=== PATIENT | male | born 1965 | race Caucasian/White ===

== ENCOUNTER 2018-06-20 13:06 | Outpatient (CLI) | payer BC, SELFPAY ==
[2018-06-20 15:23] LABS: FREE T4 0.88 ng/dL (0.76-1.46); TSH 2.73 uIU/mL (0.358-3.74)
== END 2018-06-20 13:26 ==
PROVIDERS: PCP Registered Nurse; Visit Provider Registered Nurse
DX: E03.9 Hypothyroidism, unspecified (principal)
CPT/HCPCS: 36415; 84439; 84443

== ENCOUNTER 2018-07-13 00:57 | Outpatient (CLI) | payer BC, SELFPAY ==
--- NOTE | 2018-07-13 09:35 | DI.US_ITS ---
SYMPTOM/DIAGNOSIS: INTERMITTENT RUQ DISCOMFORT, R10.11 ABDOMEN ULTRASOUND: The aorta and vena cava are normal. The liver is not enlarged but appears echogenic. An anechoic region in the right hepatic lobe likely represents a 9 by 6 by 6 mm. cyst. The gallbladder is intact. There are no gallstones or evidence of ductal dilatation. There is only limited visualization of the pancreas. No gross abnormality is seen. The spleen measures 10.7 cm. and is acoustically homogeneous. The right kidney measures 10.8 and the left kidney measures 11.5 cm. No renal abnormality is demonstrated. There is no evidence of free fluid. SUMMARY: Question fatty liver. A small anechoic region measuring 9 by 6 by 8 mm. is noted in the right hepatic lobe and likely represents a small cyst.
== END 2018-07-13 01:17 ==
PROVIDERS: PCP Registered Nurse; Visit Provider Registered Nurse
DX: R10.11 Right upper quadrant pain (principal); K76.0 Fatty (change of) liver, not elsewhere classified; K76.89 Other specified diseases of liver
CPT/HCPCS: 76700

== ENCOUNTER 2019-01-13 01:55 | Outpatient (CLI) | payer BC, SELFPAY ==
[2019-01-13 13:00] LABS: HCT 46.6 % (40.0-50.0); HGB 16.6 g/dL (13.5-17.5); Mean Corp. HGB Concentration 35.6 g/dL (32.0-36.0); Mean Corpuscular Hemoglobin 32.4 pg (27.0-33.0); Mean Corpuscular Volume 90.8 fL (80-95); Mean Platelet Volume 9.7 fL (8.0-11.0); Platelet Count 248 x1000/uL (130-400); RBC 5.13 m/cumm (4.50-6.00); RBC Distribution Width 12.6 % (11.8-14.1); White Blood Cell Count 6.39 k/cumm (4.4-10.8)
[2019-01-13 13:10] LABS: Hemoglobin A1C 5.3 % (4.5-6.2)
[2019-01-13 13:17] LABS: Calculated LDL 108 mg/dL; Cholesterol 185 mg/dL (50-200); HDL Cholesterol 34 mg/dL (40-60); Triglyceride 215 mg/dL (30-150)
[2019-01-16 11:16] LABS: PSA, Screening 0.9 ng/ml (0-3.5)
== END 2019-01-13 02:15 ==
PROVIDERS: PCP Nurse Practitioner; Visit Provider Nurse Practitioner
DX: R53.83 Other fatigue (principal); E03.9 Hypothyroidism, unspecified; Z13.1 Encounter for screening for diabetes mellitus; Z13.6 Encounter for screening for cardiovascular disorders; Z12.5 Encounter for screening for malignant neoplasm of prostate
CPT/HCPCS: 36415; 80061; 84153; 85027; 83036; 84443

== ENCOUNTER 2019-10-26 13:10 | Outpatient (CLI) | payer BC, SELFPAY ==
--- NOTE | 2019-10-26 13:45 | DI.US_ITS ---
EXAM: US LOWER EXTREMITY VENOUS LT CLINICAL HISTORY: r/o DVT, PAIN LT CALF M79.662. TECHNIQUE: Ultrasound performed using standard protocol. COMPARISON: US US ABDOMEN from 07/13/2018 FINDINGS: Duplex venous ultrasound was performed according to the usual protocol. The deep veins are freely com pressible throughout and there is normal flow augmentation with manual calf compression. 2D and Doppl er evaluation are unremarkable. IMPRESSION: No evidence of deep venous thrombosis of the left lower extremity DATA REPOSITORY:
== END 2019-10-26 13:30 ==
PROVIDERS: PCP Nurse Practitioner; Visit Provider Nurse Practitioner
DX: M79.662 Pain in left lower leg (principal)
CPT/HCPCS: 93971

== ENCOUNTER 2020-01-31 02:23 | Outpatient (CLI) | payer BC, SELFPAY ==
[2020-01-31 13:15] LABS: TSH 2.57 uIU/mL (0.36-3.74)
== END 2020-01-31 02:43 ==
PROVIDERS: PCP Nurse Practitioner; Visit Provider Nurse Practitioner
DX: E03.9 Hypothyroidism, unspecified (principal)
CPT/HCPCS: 36415; 84443

== ENCOUNTER 2020-10-11 04:22 | Outpatient (CLI) | payer BC, SELFPAY ==
[2020-10-11 10:49] LABS: Source Nasal/Nares
[2020-10-11 15:04] LABS: COVID-19 PCR Negative (Negative)
== END 2020-10-11 04:23 | disposition home or self-care (01) ==
LOC: LBO 04:22
PROVIDERS: PCP Nurse Practitioner; Visit Provider Surgery
DX: Z20.822 Contact with and (suspected) exposure to COVID-19 (principal); Z01.818 Encounter for other preprocedural examination
CPT/HCPCS: 87635

== ENCOUNTER 2020-10-14 08:10 | Day surgery (SDC) | payer BC, SELFPAY ==
--- NOTE | 2020-10-14 06:42 | W.COLOREPORT ---
Date of service: 10/14/20 Time of Service: 09:53 Colonoscopy Report Date of procedure: 10/14/20 Pre-op diagnosis general: Screening colonoscopy for hx of colon polyps Post-op diagnosis procedure note: same (and mild diverticulosis) Procedure: Colonoscopy with polypectomy Surgeon: Simona Oliveira Anesthesia Type: General:No Airway (ASA 2/Bharath Watts, YOLANDA) Estimated blood loss (mL): 3 Pathology: other (Rectal polyp) Complications: None Disposition: same day Indications: The patient is here for Colonoscopy pre-op. His last screening was in 2016 and was remarkable for tubular adenomatous polyp. He has no family history of colon cancer. He has not had any bowel habit changes. -Discussed colonoscopy bowel prep as well as the procedure. Discussed possible complications of the procedure to include bleeding, pain, perforation, missed small lesion/polyp, sore throat, aspiration and adverse reaction to the medications. Questions were answered to patient?s satisfaction. No guarantees were implied or given. Prep: Miralax/Dulcolax Findings: One small (<10 mm) sessile polyp in the rectum Mild diverticulosis Procedure Description: After informed consent was obtained the patient was taken to the procedure room and placed in a left decubitous position. Monitors were applied and a time out was done. The patients name, date of , procedure, allergies to medications and metal in their body was reviewed. The patient was then sedated. Once sedated and comfortable a rectal exam was done. External exam was normal. Internal exam revealed a normal sphincter tone and no palpable masses. The prostate felt smooth and not enlarged. The scope was then introduced and retro-flexed. No internal hemorrhoids, polyps or masses were identified on retro-flexion. The scope was then advanced to the cecum without difficulty. The ileocecal valve and appendiceal orifice were identified. The prep was marginal, there was a lot of liquid stool. 500 cc of water was used to clean as much as possible. The scope was then slowly retracted over 13 minutes back into the rectum. Polyps were removed with cold forceps in the rectum. There was mild diverticulosis noted in the sigmoid colon. The scope was removed and the patient was woken up and taken back to Same day surgery in stable condition. The patient tolerated the procedure well and there were no immediate complications. Follow up: The patient should follow up in 5 years unless they develop changes in bowel habits or other new gastrointestinal complaints.
--- NOTE | 2020-10-14 06:44 | W.PM.DSUDISC ---
Discharge Plan Disposition Patient Disposition: HOME Condition: Good Discharge Details Reason For Visit: Colonoscopy Attending Provider: Simona Oliveira Primary Care Provider: Maryann Leroy Home Meds and New Rx's Prescriptions: Continued multivitamin [One-A-Day Essential] Tablet 1 tab PO DAILY RF: 0 Adult Probiotic 3 billion cell capsule 3,000 mmu cells PO DAILY RF: 0 cholecalciferol (vitamin D3) 1,000 unit capsule 1,000 unit PO DAILY RF: 0 ascorbic acid (vitamin C) 500 mg capsule 500 mg PO DAILY RF: 0 levothyroxine 50 mcg capsule 50 mcg PO DAILY Qty: 90 RF: 3 cholecalciferol (vitamin D3) [Vitamin D3] 25 mcg (1,000 unit) Tablet 1,000 unit PO DAILY RF: 0 Discontinued polyethylene glycol 3350 17 gram/dose powder 238 g PO ONCE Qty: 238 RF: 0 bisacodyl [Dulcolax (bisacodyl)] 5 mg tablet,delayed release (DR/EC) 5 mg PO ONCE Qty: 4 RF: 0 Discharge Instructions Additional Instructions: Findings: one small flat polyp mild diverticulosis Follow up: 5 years Please call if you develop: fevers >101.5 Nausea or Vomiting Abdominal pain that is not transient Rectal bleeding that is more then a tbsp A hard abdomen and inability to pass gas DAY SURGERY UNIT POST ENDOSCOPY INSTRUCTIONS Instructions for everyone who is given Anesthesia: For your safety, please do the following for the next 24 Hours: a. Do not drive or operate dangerous equipment b. Do not drink alcohol beverages or use any recreational drugs for the first 24 hours or while taking pain medications. The medications in your body may have a reaction that can be dangerous. c. Do not make any important decisions or sign any important papers 1. Generally there are no restrictions on your activity after a day or so has gone by, but you may feel a bit fatigued for a few days. 2. After you arrive home you may have a light meal and return to a normal diet as you can tolerate it without feeling sick to your stomach. 3. After surgery, you may feel pain or discomfort. This should be only transient, but if it persists please contact your doctor. 4. If there are any questions regarding the findings of your procedure, please feel free to contact your doctor. 6. If you are unable to contact your doctor with a problem, contact the hospital at [phone]. 6. Continue all your regular medications unless directed otherwise. I understand the above instructions and have no questions. Signature of Patient or Responsible Adult Escort Date/Time Name of Responsible Adult Escort Signature of Nurse Date/Time Activity:: Activity as Tolerated Diet:: High Fiber Discharge Orders Discharge Orders: Discharge Order (Routine); Ordered 10/14/20 Ordered By: Simona Oliveira
[2020-10-14 08:11] VITALS: BP 136/79; PULSE 77; RESP 18; TEMP 36.5; O2SAT 97
[2020-10-14] MEDS: Lactated Ringers 1,000 ML 80 ML IV (08:35)
--- NOTE | 2020-10-14 08:36 | W.ANESPRE ---
General Info Date of Service Date Performed: 10/14/20 Height: 5 ft 6 in Weight: 105.914 kg Body Mass Index (BMI): 37.7 Surgical Procedure: Operation Date: 10/14/20 09:05 Proposed Procedures Side Surgeon p Colonoscopy Simona Oliveira MD Meds Allergies and Home Medications Allergies Allergy/AdvReac Type Severity Reaction Status Date / Time cyclobenzaprine AdvReac Intermediate Nasty Verified 10/14/20 08:25 [From Flexeril] dispostion codeine AdvReac Nausea Verified 10/14/20 08:25 Home Medication Medication Instructions Recorded cholecalciferol (vitamin D3) 25 1,000 unit PO DAILY 03/03/19 mcg (1,000 unit) capsule lactobacillus combination no.8 3 3,000 mmu cells PO DAILY 03/03/19 billion cell capsule multivitamin 1 tab PO DAILY 03/03/19 levothyroxine 50 mcg capsule 50 mcg PO DAILY #90 cap 08/08/19 ascorbic acid (vitamin C) 500 mg 500 mg PO DAILY 10/03/20 capsule bisacodyl 5 mg tablet,delayed 5 mg PO ONCE #4 tab 10/03/20 release polyethylene glycol 3350 17 238 g PO ONCE #238 g 10/03/20 gram/dose oral powder cholecalciferol (vitamin D3) 1,000 unit PO DAILY 10/10/20 [Vitamin D3] Current Visit Medications: Current Medications Generic Name Dose Route Start Last Admin Trade Name Freq PRN Reason Stop Dose Admin Hyoscyamine Sulfate 0.125 mg 10/14/20 06:44 Hyoscyamine 0.125 Mg Sl/Oral/Chew SL DIRECTED PRN Ringer's Solution 1,000 mls @ 80 mls/hr 10/14/20 06:00 10/14/20 08:35 IV 11/10/20 23:59 80 mls/hr INFUSION DAYANA Administration IV Miscellaneous Supplies 1 each 10/14/20 06:00 Iv Access IV 11/10/20 23:59 DIRECTED DAYANA Ondansetron HCl 4 mg 10/14/20 06:44 Ondansetron 4 Mg/2 Ml Vial IVP Q4H PRN PRN Nausea / Vomiting Sodium Chloride 0 ml 10/14/20 06:00 Normal Saline Flush 10 Ml Syr IV 11/10/20 23:59 PRN PRN Sodium Chloride 0 ml 10/14/20 06:00 Normal Saline 10 Ml Vial IJ 11/10/20 23:59 DIRECTED PRN Sterile Water 0 ml 10/14/20 06:00 Water,Injection,Sterile 10 Ml Vial IJ 11/10/20 23:59 DIRECTED PRN PFSH Active Problems Active Problems: Problem Status Onset Code Screening for colon cancer Z12.11 Annual physical exam Z00.00 Screening for prostate cancer Z12.5 Snoring R06.83 Fatigue R53.83 Hypothyroid E03.9 Tobacco Smoking/Tobacco Use Status: Never Passive smoking exposure: Yes Alcohol Alcohol Intake: current Alcohol intake frequency: a few times a month Substance Use Substance use: Occasionally Substance use type: marijuana Details: Marijuana use 3-4 days ago Vital Signs and Lab Results Vital Signs Most Recent Vital Signs in EMR: Most Recent Vital Signs Temp Pulse Resp BP Pulse Ox 36.5 C 77 18 136/79 97 10/14/20 08:11 10/14/20 08:11 10/14/20 08:11 10/14/20 08:11 10/14/20 08:11 Lab Results Blood Type / Crossmatch: No Data to Display Complete Blood Count: No Data to Display Complete Metabolic Panel: No Data to Display Liver Function Panel: No Data to Display Coagulation Panel: No Data to Display Cardiac Panel: No Data to Display Arterial Blood Gas: No Data to Display Venous Blood Gas: No Data to Display Pancreas Panel: No Data to Display Thyroid Panel: No Data to Display Infectious Disease: Coronavirus (COVID-19)(PCR) Negative (Negative) 10/11/20 08:40 10/11/20 Coronavirus 2019 Source Nasal/Nares 10/11/20 08:40 10/11/20 Blood Cultures: No Data to Display Toxicology Panel: No Data to Display Anesthesia Assessment and Plan Anesthesia History Personal History: No History of Anesthesia Complications Family History: No Family History of Anesthesia Complications Exercise Tolerance Exercise Tolerance: Metabolic Equivalents>4 Cardiac & Pulmonary Exam Cardiac Exam: Normal S1/S2 Heart Sounds Pulmonary Exam: Clear Bilateral Breath Sounds Airway Exam Known Difficult Airway: No Mallampati Class: 3 Mouth Opening: Normal (> 3cm) Thyromental Distance: Less than 3 cm Neck Range of Motion: Limited ROM Neck Circumference: Thick Teeth Condition: Normal Dentition ASA Classification ASA Score: ASA 2 Emergency Case?: No NPO Status NPO Status: NPO Clears >2 hours, Solids >8 hours Anesthesia Plan Resuscitation Status: Full Code Anesthesia Technique: General Anesthesia Airway Planned: Natural Airway Monitors Used: Standard Monitors Preoperative Comments:: 55 yo male for colo. last colo was 2015 with polyps.
[2020-10-14 08:47] VITALS: BMI 37.7
--- NOTE | 2020-10-14 09:12 | W.ANESPOSTOP ---
Postoperative Evaluation Date, Time and Location Date Performed: 10/14/20 Time Performed: 09:12 Patient Location: Day Surgery Unit Vital Signs Most Recent Imported Vital Signs: Most Recent Vital Signs Temp Pulse Resp BP Pulse Ox 36.5 C 77 18 136/79 97 10/14/20 08:11 10/14/20 08:11 10/14/20 08:11 10/14/20 08:11 10/14/20 08:11 Most Recent Manually Entered Vital Signs: Adult Blood Pressure: 127/78 Heart Rate: 68 Respirations: 12 Oxygen Saturation (%): 98 Temperature (C): 36.4 C Pain Score (0-10 Scale): 0 Pain Score Most Recent Pain Score: Most Recent Pain Score Pain Level 0 10/14/20 08:11 Assessment Mental Status: Awake (Alert & Oriented to Patient Baseline) Airway and Respiratory Function: Patent airway with normal (patient baseline) respiratory exam Cardiovascular Function: Hemodynamically Stable Hydration Status: Adequately Hydrated Nausea & Vomiting: No Nausea or Vomiting Pain: Pt. Denies Any Pain Peripheral Nerve Block: Patient did not receive a nerve block
[2020-10-14 09:13] VITALS: BP 127/78; PULSE 68; RESP 12; TEMPC 36.4; O2SAT 98
--- NOTE | 2020-10-14 09:45 | BOWEL_PTH ---
PATIENT: Braxton Perales LOC: [facility] U#:[id number] AGE/SX: 55/M ROOM: RE10/14/[address]: Simona Oliveira MD : 1965 BED: DIS: 10/14/2020 SPEC #: [id number] RECD: 10/14/20 12:46 STATUS: CLARE REQ #: [id number] CARLEEN: 10/14/20 09:[address]: Simona Oliveira DEPT: Surgical Specimen RECD BY: Mirian Allen ENTERED: 10/14/20 12:47 SP TYPE: Bowel OTHR DR: Maryann Leroy, PhD COILED TUBING OPERATOR Tissues: 1 - BIOPSY BOWEL Procedures: GROSS AND MICRO LEVEL 4 Comments: [id number]
[2020-10-14 09:58] VITALS: BP 132/94; PULSE 60; RESP 16; TEMP 36.1; O2SAT 100
--- NOTE | 2020-10-14 10:01 | W.ANESPOSTOP ---
Postoperative Evaluation Date, Time and Location Date Performed: 10/14/20 Time Performed: 10:01 Patient Location: Day Surgery Unit Vital Signs Most Recent Imported Vital Signs: Most Recent Vital Signs Temp Pulse Resp BP Pulse Ox 36.5 C 77 18 136/79 97 10/14/20 08:11 10/14/20 08:11 10/14/20 08:11 10/14/20 08:11 10/14/20 08:11 Most Recent Vital Signs Temp Pulse Resp BP Pulse Ox 36.5 C 77 18 136/79 97 10/14/20 08:11 10/14/20 08:11 10/14/20 08:11 10/14/20 08:11 10/14/20 08:11 Most Recent Manually Entered Vital Signs: Adult Blood Pressure: 132/94 Heart Rate: 62 Respirations: 12 Oxygen Saturation (%): 98 Temperature (C): 36.1 C Pain Score (0-10 Scale): 0 Pain Score Most Recent Pain Score: Most Recent Pain Score Pain Level 0 10/14/20 08:11 Assessment Mental Status: Awake (Alert & Oriented to Patient Baseline) Airway and Respiratory Function: Patent airway with normal (patient baseline) respiratory exam Cardiovascular Function: Hemodynamically Stable Hydration Status: Adequately Hydrated Nausea & Vomiting: No Nausea or Vomiting Pain: Pt. Denies Any Pain Peripheral Nerve Block: Patient did not receive a nerve block
[2020-10-14 10:02] VITALS: BP 132/94; PULSE 62; RESP 12; TEMPC 36.1; O2SAT 98
[2020-10-14 10:30] VITALS: BP 155/86; PULSE 59; RESP 16; TEMP 36.4; O2SAT 97
== END 2020-10-14 10:50 | disposition home or self-care (01) ==
PROVIDERS: PCP Nurse Practitioner; Visit Provider Surgery
PROC: 0DJD8ZZ Inspection of Lower Intestinal Tract, Via Natural or Artificial Opening Endoscopic (ICD-10-PCS; CPT 45378; principal; 2020-10-14 09:00)
DX: Z12.11 Encounter for screening for malignant neoplasm of colon (principal); K62.1 Rectal polyp; Z86.010 Personal history of colon polyps; K57.30 Diverticulosis of large intestine without perforation or abscess without bleeding
CPT/HCPCS: 45380; 88305; J2001

== ENCOUNTER → 2021-06-04 01:54 | Outpatient (CLI) | payer BC, SELFPAY ==
--- NOTE | 2021-06-04 06:30 | DI.MRI_ITS ---
Exam(s) MR LUMBAR SPINE WO EXAM: MR LUMBAR SPINE WO CLINICAL HISTORY: Injured lumbar spine,BACK PAIN,S39.92XA. TECHNIQUE: Multiplanar multisequence MRI of the Lumbar spine was performed. COMPARISON: CT ABD PELVIS WITH CONTRAST from 10/16/2016 FINDINGS: Five lumbar vertebrae are presumed Conus medullaris is at normal level. There is no evidence of conus mass nor subjacent clumping of in trathecal nerve roots to suggest arachnoiditis. The distal thecal sac is at L5-S1 level. There is n o evidence of Tarlov intra sacral cyst within the sacral canal. Bones:There are no fractures nor ominous osseous lesions in the lumbar vertebral bodies and visualize d sacrum. With respect to the individual levels... T12-L1: Unremarkable L1-2: There is mild disc space narrowing. There is no evidence of significant disc herniation or can al stenosis. No significant foraminal stenosis at this level. No facet arthropathy. L2-3: Moderate disc height loss. Relatively symmetrical annular bulging. Central canal dimensions a re lower normal. No foraminal stenosis. No significant facet arthropathy. L3-4: Relatively preserved disc height. There is a small central subligamentous disc protrusion at t his level extending posteriorly 1 millimeter, this subligamentous finding indenting the anterior aspe ct thecal sac at the level of the disc space. However, central canal dimensions are lower normal. T here is no foraminal stenosis. Minimal degenerative changes are noted in the facet joints. L4-5: Normal disc height and signal. No disc herniation. No canal stenosis. No foraminal stenosis. Mild facet degenerative changes L5-S1: Normal disc height and signal. No disc herniation. No canal stenosis. No foraminal stenosis . Mild degenerative facet joint changes. Soft tissues: paraspinal soft tissues appear unremarkable. IMPRESSION: 1. There is a small central subligamentous disc protrusion at L3-4 level. This slightly indents the anterior aspect of the thecal sac at this level. However, central canal dimensions are lower normal and there is no significant foraminal stenosis at this level nor elsewhere in the lumbosacral spinal column. 2. At L2-3 level there is symmetrical annular bulging which also flattens the anterior aspect of the thecal sac. Central canal dimensions are lower normal. No foraminal stenosis. 3. Both the L4-5 and L5-S1 discs appear unremarkable There is minimal facet joint degenerative change DATA REPOSITORY:
== END ==
PROVIDERS: PCP Nurse Practitioner; Visit Provider Nurse Practitioner Family
DX: M51.26 Other intervertebral disc displacement, lumbar region
CPT/HCPCS: 72148

== ENCOUNTER 2021-07-29 02:11 | Outpatient (CLI) | payer BC, SELFPAY ==
[2021-07-29 13:00] LABS: TSH 2.05 uIU/mL (0.36-3.74)
== END 2021-07-29 02:12 | disposition home or self-care (01) ==
LOC: LOS 02:11
PROVIDERS: PCP Nurse Practitioner; Visit Provider Nurse Practitioner
DX: E03.9 Hypothyroidism, unspecified (principal)
CPT/HCPCS: 36415; 84443

== ENCOUNTER 2022-02-27 01:20 | Outpatient (CLI) | payer BC, SELFPAY ==
[2022-02-27 13:00] LABS: HGB 17.5 g/dL (13.5-17.5); MCH 31.9 pg (27.0-33.0); MCV 91 fL (80-95); MPV 9.8 fL (8.0-11.0); Platelet Count 267 10^3/uL (130-400); RBC 5.48 10^6/uL (4.36-5.78); RDW-SD 40.2 fL; WBC 7.85 10^3/uL (4.4-10.8)
[2022-02-27 13:09] LABS: Hemoglobin A1C 5.2 % (<5.7)
[2022-02-27 13:14] LABS: ALT 99 U/L (16-63); AST 40 U/L (15-37); Albumin 3.9 g/dL (3.4-5.0); Alkaline Phosphatase 75 U/L (46-116); Anion Gap 5.6 mmol/L (3-11); BUN 11 mg/dL (7-18); Bilirubin, Total 0.4 mg/dL (0.2-1.0); CO2 29.4 mmol/L (21.0-32.0); Calculated LDL 108 mg/dL (<100); Chloride 106 mmol/L (98-107); Cholesterol 178 mg/dL (<200); Estimated GFR 87.78 (mL/min/1.73m2); Glucose 108 mg/dL (74-106); HDL Cholesterol 36 mg/dL (40-60); Potassium 4.7 mmol/L (3.5-5.1); Sodium 141 mmol/L (136-145); Total Protein 7.6 g/dL (6.4-8.2); Triglyceride 173 mg/dL (<150)
== END 2022-02-27 01:21 | disposition home or self-care (01) ==
LOC: LOS 01:21
PROVIDERS: PCP Nurse Practitioner Family; Visit Provider Nurse Practitioner Family
DX: E03.9 Hypothyroidism, unspecified (principal); E66.9 Obesity, unspecified; G47.33 Obstructive sleep apnea (adult) (pediatric); Z00.00 Encounter for general adult medical examination without abnormal findings
CPT/HCPCS: 36415; 80053; 80061; 85027; 83036; 84443

== ENCOUNTER 2023-02-26 01:36 | Outpatient (CLI) | payer BC, SELFPAY ==
[2023-02-26 12:41] LABS: ALT 101 U/L (16-63); AST 44 U/L (15-37); Albumin 3.8 g/dL (3.4-5.0); Alkaline Phosphatase 64 U/L (46-116); Anion Gap 9.9 mmol/L (3-11); BUN 8 mg/dL (7-18); Bilirubin, Total 0.5 mg/dL (0.2-1.0); CO2 26.1 mmol/L (21.0-32.0); Calcium 8.6 mg/dL (8.5-10.1); Calculated LDL 108 mg/dL (<100); Chloride 107 mmol/L (98-107); Cholesterol 169 mg/dL (<200); Estimated GFR 87.24 (mL/min/1.73m2); Glucose 104 mg/dL (74-106); HDL Cholesterol 36 mg/dL (40-60); Potassium 4.3 mmol/L (3.5-5.1); Sodium 143 mmol/L (136-145); Total Protein 7.4 g/dL (6.4-8.2); Triglyceride 127 mg/dL (<150)
== END 2023-02-26 01:37 | disposition home or self-care (01) ==
LOC: LOS 01:37
PROVIDERS: PCP Nurse Practitioner Family; Visit Provider Nurse Practitioner Family
DX: E03.9 Hypothyroidism, unspecified (principal); E66.9 Obesity, unspecified; G47.33 Obstructive sleep apnea (adult) (pediatric); Z00.00 Encounter for general adult medical examination without abnormal findings
CPT/HCPCS: 36415; 80053; 80061; 84443

== ENCOUNTER 2023-07-15 20:41 | Emergency (ER) | payer BC, SELFPAY ==
[2023-07-15 20:47] VITALS: PULSE 94; RESP 16; TEMP 37; O2SAT 98
[2023-07-15 20:58] VITALS: BP 177/64
--- NOTE | 2023-07-15 21:00 | DI.CT_ITS ---
Exam(s) CT FACIAL W EXAM: CT FACIAL W CLINICAL HISTORY: concern for deep tissue infection face and scalp. TECHNIQUE: Imaging Protocol: Axial computed tomography images with coronal and sagittal reformatted images were created and reviewed CONTRAST MATERIAL: Intravenous: Omnipaque 350 Contrast volume:100 mL COMPARISON: No exams were available for comparison FINDINGS: CT Face: Facial Bones: No definite fracture is noted in facial bones. No destructive changes are seen to sugg est osteomyelitis. 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 Sinuses and Mastoids: There is mild mucosal thickening in the maxillary sinuses. Small mucous retent ion cysts are seen in the floor of the right maxillary sinus. There is mucosal thickening in several ethmoid air cells bilaterally. Mild mucosal thickening is seen in the frontal sinuses and sphenoid si nuses bilaterally. No air-fluid levels are seen in any of the visualized paranasal sinuses. No sinu s wall destruction is seen. Globes, extraocular muscles, optic nerves and retrobulbar fat: Normal. Upper aerodigestive tract: Normal. Mandible and bilateral temporomandibular joints: Normal. Soft tissues: There is mild soft tissue swelling and skin thickening along the forehead but no focal fluid collection is seen to suggest an abscess. This likely reflects a cellulitis. IMPRESSION: 1. Soft tissue swelling and skin thickening along the forehead most suggestive of cellulitis. No abs cess is identified. 2. The underlying bone is unremarkable. No evidence of osteomyelitis. 3. The orbits and retro-orbital soft tissues are unremarkable. 4. Mild sinusitis. No air-fluid levels are seen in the visualized paranasal sinuses. RADIATION DOSE DELIVERED: 919.12mGy.cm Total DLP DATA REPOSITORY: All CT scans at this facility are submitted to the National Radiology Data Registry (NRDR) Dose Index Registry (DIR) with the [employer] [place] [employer] (A[employer]). RADIATION OPTIMIZATION: All CT scans at this facility use at least one of these dose optimization te chniques: automated exposure control; mA and/or kV adjustment per patient size (includes targeted exa ms where dose is matched to clinical indication); or iterative reconstruction.
--- NOTE | 2023-07-15 21:26 | W.ED.GENAD ---
Discharge Plan Disposition Patient Disposition: Home Condition: Improving Discharge Details Chief Complaint: EyeProblem Clinical Impression: Cellulitis of face Primary Care Provider: Olga Jay ED Provider: Osman Damon Home Meds and New Rx's Prescriptions: No Action multivitamin [One-A-Day Essential] Tablet 1 tab PO DAILY Adult Probiotic 3 billion cell capsule 3,000 mmu cells PO DAILY potassium gluconate 595 mg (99 mg) tablet 595 mg PO DAILY amoxicillin-pot clavulanate 875-125 mg tablet 1 tab PO BID Qty: 14 0RF sulfamethoxazole-trimethoprim [Bactrim DS] 800-160 mg tablet 1 tab PO BID Qty: 14 0RF ascorbic acid (vitamin C) 500 mg capsule 500 mg PO DAILY levothyroxine 50 mcg tablet 50 mcg PO DAILY Qty: 90 4RF cholecalciferol (vitamin D3) [Vitamin D3] 25 mcg (1,000 unit) Tablet 1,000 unit PO DAILY Discharge Instructions Instructions: Cellulitis (ED) Additional Instructions: Please take antibiotics as prescribed. Please return to the emergency department for any worsening symptoms or poor healing. HPI General Date/Time Provider Initiated Documentation: 07/15/23 21:05. HPI Narrative: 58-year-old male presents with worsening skin infection to left forehead and face now involving soft tissue surrounding his left eye, endorses bumping into a shelf in his basement on Wednesday and developing a draining wound to his left superior scalp over the coming days, he has noted some bubbling developing on his skin was seen in urgent care today started on Bactrim and Augmentin. Denies history of diabetes. Of note patient also had what sounds like a small granular foreign body flushed from his left eye on Wednesday patient does endorse light sensitivity Related Data Home Medications Medication Instructions Recorded Confirmed lactobacillus combination no.8 3 3,000 mmu cells PO DAILY 03/03/19 07/15/23 billion cell capsule (Adult Probiotic) multivitamin (One-A-Day Essential 1 tab PO DAILY 03/03/19 07/15/23 tablet) ascorbic acid (vitamin C) 500 mg 500 mg PO DAILY 10/03/20 07/15/23 capsule cholecalciferol (vitamin D3) 25 1,000 unit PO DAILY 10/10/20 07/15/23 mcg (1,000 unit) tablet (Vitamin D3) levothyroxine 50 mcg tablet 50 mcg PO DAILY #90 tabs 10/21/22 07/15/23 potassium gluconate 595 mg (99 mg) 595 mg PO DAILY 02/04/23 07/15/23 tablet amoxicillin 875 mg-potassium 1 tab PO BID #14 tabs 07/15/23 07/15/23 clavulanate 125 mg tablet sulfamethoxazole 800 1 tab PO BID #14 tabs 07/15/23 07/15/23 mg-trimethoprim 160 mg tablet (Bactrim DS) Previous Rx's Medication Instructions Recorded levothyroxine 50 mcg tablet 50 mcg PO DAILY #90 tabs 10/21/22 amoxicillin 875 mg-potassium 1 tab PO BID #14 tabs 07/15/23 clavulanate 125 mg tablet sulfamethoxazole 800 1 tab PO BID #14 tabs 07/15/23 mg-trimethoprim 160 mg tablet (Bactrim DS) Allergies Allergy/AdvReac Type Severity Reaction Status Date / Time cyclobenzaprine AdvReac Intermediate Nasty Verified 07/15/23 20:47 [From Flexeril] dispostion codeine AdvReac Nausea Verified 07/15/23 20:47 General Stated Complaint: EyeProblem DICK: 4 Review of Systems Narrative: Review of Systems Constitutional: negative Eyes: negative ENT: negative Cardiovascular: negative Respiratory: negative Gastrointestinal: negative : negative Musculoskeletal: negative Skin: Facial skin infection Neurologic: negative Psych: negative Exam Narrative Exam Narrative: Physical Examination General: alert, awake, cooperative, resting comfortably, no acute distress HEENT: normocephalic, large area of cellulitis involving left frontal forehead including left superior scalp and left orbital soft tissue, 2 cm open draining wound left superior scalp at hairline with mild purulent material self expressing, multiple areas of small vesicles left frontal scalp, no crepitus no bulla; visual acuity 20/70 bilaterally Neck: supple, trachea midline; full ROM Chest: normal to inspection Respiratory: normal respiratory effort, speaking in full sentences Skin: See HEENT Neuro: AAOx3, normal speech, moving all extremities Psych: Appropriate mood and affect Course Vital Signs Vital signs: Vital Signs Temperature 37.0 C 07/15/23 20:47 Pulse 94 H 07/15/23 20:47 Respiratory Rate 16 07/15/23 20:47 Pulse Oximetry 98 07/15/23 20:47 Temperature 37.0 C 07/15/23 20:47 Temperature Source Tympanic 07/15/23 20:47 Pulse 94 H 07/15/23 20:47 Respiratory Rate 16 07/15/23 20:47 Respiratory Effort Normal 07/15/23 20:56 Blood Pressure 177/64 H 07/15/23 20:58 Blood Pressure Mean 101 07/15/23 20:58 Blood Pressure Position Sitting 07/15/23 20:58 Pulse Oximetry 98 07/15/23 20:47 Oxygen Delivery Method Room Air 07/15/23 20:47 Oxygen Flow Rate 0 07/15/23 20:47 Pain Level 6 07/15/23 20:47 Lab/Test Results Lab/Test Results: 07/15/23 21:05 Blood Blood Culture - Pending 07/15/23 21:05 Blood Blood Culture - Pending Medical Decision Making 58-year-old male presents with worsening skin infection to left forehead and face now involving soft tissue surrounding his left eye, endorses bumping into a shelf in his basement on Wednesday and developing a draining wound to his left superior scalp over the coming days, he has noted some bubbling developing on his skin was seen in urgent care today started on Bactrim and Augmentin. Denies history of diabetes. Of note patient also had what sounds like a small granular foreign body flushed from his left eye on Wednesday patient does endorse light sensitivity; large area of cellulitis involving left frontal forehead including left superior scalp and left orbital soft tissue, 2 cm open draining wound left superior scalp at hairline with mild purulent material self expressing, multiple areas of small vesicles left frontal scalp, no crepitus no bulla; visual acuity 20/70 bilaterally Concern for erysipelas versus cellulitis versus subcutaneous abscess versus necrotizing soft tissue infection of face spreading from site of scalp injury muscles consider atypical herpes zoster with superinfection low suspicion for orbital cellulitis as primary source given history and physical, will start empiric antibiotics to cover MRSA strep and polymicrobial deep tissue infection, vancomycin Zosyn and clindamycin, will obtain CT face and scalp with IV contrast to assess for subcutaneous gas or abscess pocket or foreign body in scalp. Will perform fluorescein stain to left eye to assess for corneal abrasion ulceration or dendritic lesions. Will obtain basic labs lactate blood cultures. Disposition pending reassessment of symptoms and results 21: 47 on fluorescein stain can see small corneal defect where patient states corneal foreign body was removed, patient is on ophthalmologic drops. Resting really no acute distress nontoxic. Will reassess after antibiotic administration and review of CT face. 22: 31 patient resting comfortably feeling much better after tetracaine administration during fluorescein exam. No extension of facial soft tissue infection since arrival. Remains hemodynamically stable. Pending results of CT consider discharge home with antibiotic regiment already prescribed to him which is amoxicillin/clavulanate as well as trimethoprim sulfamethoxazole which will cover both strep and MRSA 23: 24 patient resting comfortably no acute distress, induration and swelling to face has decreased after antibiotic administration and anti-inflammatory, no white count no elevated lactate, no evidence of subcutaneous gas or abscess on CT; high clinical suspicion for cellulitis or erysipelas. Patient was prescribed Augmentin as well as Bactrim which should cover both strep and MRSA. Given home care instructions and strict return precautions for any worsening symptoms or poor healing. Quality:SDOH Health Related Social Needs: No Data to Display PFSH All Active Problems (Updated 07/15/23 @ 23:32 by Osman Damon MD) Cellulitis of face (Acute) Cellulitis of forehead (Acute) Elevated blood pressure reading in office without diagnosis of hypertension (Acute) COVID-19 (Acute) Back injury (Acute) Obesity (Chronic) JENNIFFER (obstructive sleep apnea) (Chronic) CPAP Colon polyp, hyperplastic (Acute ~09/2020) Annual physical exam (Acute) Hypothyroid (Chronic) Surgical History (Updated 10/17/20 @ 15:52 by Lenka Oliveros) History of colonoscopy (~09/2020) Family History Mother No problems noted. Father , age 74 No problems noted. Sister Heart disease Sister No problems noted. Brother No problems noted. Brother No problems noted. Brother No problems noted. Maternal Grandfather No problems noted. Paternal Grandfather No problems noted. Maternal Grandmother No problems noted. Paternal Grandmother No problems noted. Social History (Updated 02/08/23 @ 10:45 by Corinne Dietrich) Smoking/Tobacco Use Status: Never Second Hand Exposure: Yes Smoking risk assessment performed?: Yes Alcohol Intake: current Alcohol Intake frequency: a few times a month Alcohol type: beer Drug use: Occasionally Substance use type: marijuana Counseling given: No Counseling provided: none Details: Marijuana use 3-4 days ago Adopted: No Caregiver/Support person: No Foster care: No Household members: spouse Housing: house Number of Children: 4 number of grandchildren: 12 Communication Needs: None Education Level: high school Do you need help understanding health information?: Rarely current occupation: structural analyst Pets and animals: Yes Pets and animals: cat(s) and dog(s) Sexually active: Yes Do you think of yourself as: straight/heterosexual Current gender identity: male What is your relationship status?: How often do you talk on the phone with friends or family?: once per week How often do you get together with friends or relatives?: once per week How often do you attend mosque or orthodox services?: decline to answer Do you belong to any clubs or organized social groups?: no Panel score (0-1 are the most socially isolated patients): 1 What type of physical activity do you participate in: none Duration: < 15 minutes/day Re/Faith: Gnosticism Special re needs: No Agree to transfusion: Yes Seatbelt use: always Helmet use: Yes Drive intox or ride w/intox sales warehouse driver: No Working smoke detector in home: Yes Carbon monox detector in home: Yes Firearms in home: Yes Do you feel safe at home: Yes Do you feel safe in your relationship?: Yes Victim of physical abuse: No Victim of emotional abuse: No Victim of sexual abuse: No Would you like helpful sources: No
[2023-07-15 21:33] LABS: Lactate 1.1 mmol/L (0.6-1.4)
[2023-07-15 21:35] LABS: Abs Immature Grans 0.03 10^3/uL (0.0-0.06); Absolute Basophil Count 0.03 10^3/uL (0.0-0.2); Absolute Lymphocyte Count 0.82 10^3/uL (1.2-3.4); Absolute Monocyte Count 0.35 10^3/uL (0.1-0.8); Absolute Neutrophil Count 4.73 10^3/uL (1.2-6.7); Basophils % 0.5; Eosinophils % 1.7; HCT 48.5 % (40.0-50.0); HGB 17.4 g/dL (13.5-17.5); Immature Grans % 0.5; Lymphocytes % 13.5; MCH 32.2 pg (27.0-33.0); MCHC 35.9 % (32.0-36.0); MCV 90 fL (80-95); MPV 8.7 fL (8.0-11.0); Monocytes % 5.8; Platelet Count 155 10^3/uL (130-400); RBC 5.41 10^6/uL (4.36-5.78); RDW 11.9 % (11.8-14.1); RDW-SD 39.4 fL; WBC 6.06 10^3/uL (4.4-10.8)
[2023-07-15] MEDS: Tetracaine 0.5% 4 ML BTL (21:37)
[2023-07-15] MEDS: Fluorescein STRIPS 100/BOX 1 MG (21:37)
[2023-07-15] MEDS: VANCOMYCIN 1,500 MG in Normal Saline 250 ML 166.6666 MG IVPB (21:43)
[2023-07-15] MEDS: PIPERACILLIN/TAZO 3.375 GM in Normal Saline 50 ML IVPB (21:46)
[2023-07-15] MEDS: CLINDAMYCIN 600 MG/50 ML BAG 100 MG IVPB (21:46)
[2023-07-15] MEDS: Ketorolac 15 MG/ML VIAL IVP (21:47)
[2023-07-15] MEDS: Normal Saline 1,000 ML 1000 ML IV (21:47)
[2023-07-15 21:50] LABS: ALT 88 U/L (16-63); AST 33 U/L (15-37); Albumin 4.1 g/dL (3.4-5.0); Alkaline Phosphatase 71 U/L (46-116); Anion Gap 11.6 mmol/L (3-11); BUN 12 mg/dL (7-18); Bilirubin, Total 0.5 mg/dL (0.2-1.0); CO2 24.4 mmol/L (21.0-32.0); CREATININE 1.1 mg/dL (0.70-1.30); Calcium 8.5 mg/dL (8.5-10.1); Chloride 103 mmol/L (98-107); Estimated GFR 77.81 (mL/min/1.73m2); Glucose 144 mg/dL (74-106); Potassium 3.9 mmol/L (3.5-5.1); Sodium 139 mmol/L (136-145); Total Protein 7.9 g/dL (6.4-8.2)
[2023-07-15] MEDS: Normal Saline - Diluent 50 ML VIAL IJ (22:22)
[2023-07-15] MEDS: Omnipaque 350 MG/ML 100 ML BTL IJ (22:23)
--- NOTE | 2023-07-15 22:49 | DI.VRAD_ITS ---
PROCEDURE INFORMATION: Exam: CT Maxillofacial With Contrast Exam date and time: 07/15/2023 10:23 PM Age: 58 years old Clinical indication: Other: Concern for deep tissue infection face and scalp; Additional info: Face forehead scalp infection TECHNIQUE: Imaging protocol: Computed tomography of the face with contrast. Contrast material: OMNIPAQUE 350; Contrast volume: 100 ml; Contrast route: INTRAVENOUS (IV); COMPARISON: No relevant prior studies available. FINDINGS: Orbital cavities: Orbits are normal. Globes are unremarkable. Bones/joints: There is vertebral formation and segmentation anomaly of the visualized upper cervical spine. Paranasal sinuses: Normal. No air-fluid levels. Soft tissues: There is skin thickening and subcutaneous fat stranding and swelling in the left forehead extending to the left upper eyelid. No subcutaneous collections. No soft tissue emphysema. IMPRESSION: Findings consistent with left forehead cellulitis. No collections. No changes of postseptal cellulitis on either side. Dictated and Authenticated by: Benjamín West MD. Ordering:EKATERINA Brewer MD
[2023-07-15 22:50] VITALS: BP 142/60; PULSE 82; RESP 16; TEMP 36.6; O2SAT 98
[2023-07-15] MEDS: ACETAMINOPHEN 1,000 MG/100 ML BTL 400 MG IVPB (23:22)
[2023-07-15 23:36] VITALS: BP 148/92; PULSE 86; RESP 16; TEMP 36.7; O2SAT 99
--- NOTE | 2023-07-26 16:12 | NUR.NOTE ---
At the request of Dr. Self, the provider notes for were faxed to their facility for ongoing care. Nursing Note:
== END 2023-07-15 23:59 | disposition home or self-care (01) ==
PROVIDERS: Emergency Provider Emergency Medicine; PCP Nurse Practitioner Family
DX: L03.211 Cellulitis of face (principal); H57.9 Unspecified disorder of eye and adnexa
CPT/HCPCS: 36415; 80053; 87040; 96365; 96366; 96367; 96368; 96375; 99285; 70487; 83605; 85025; 99284; J0131; J0737; J1885; J2543; J3370; J3490

== ENCOUNTER 2023-07-17 09:17 | Emergency (ER) | payer BC, SELFPAY ==
[2023-07-17] VITALS (14 sets, daily range): BP systolic 150–165; BP diastolic 72–86; PULSE 65–80; RESP 18–20; TEMP 36.2–36.6; O2SAT 91–97
[2023-07-17 09:52] LABS: Lactate 1.3 mmol/L (0.6-1.4)
[2023-07-17] MEDS: PIPERACILLIN/TAZO 4.5 GM in Normal Saline 100 ML IVPB (09:58)
[2023-07-17] MEDS: Ondansetron 4 MG/2 ML VIAL IVP (09:58)
[2023-07-17 10:00] LABS: ESR 23 mm/hr (0-20)
[2023-07-17 10:05] LABS: HCT 48.3 % (40.0-50.0); HGB 17.4 g/dL (13.5-17.5); MCV 89 fL (80-95); Platelet Count 148 10^3/uL (130-400); RBC 5.43 10^6/uL (4.36-5.78); RDW 11.9 % (11.8-14.1); RDW-SD 39.1 fL; WBC 8.18 10^3/uL (4.4-10.8)
[2023-07-17 10:08] LABS: Absolute Lymphocyte Count 0.98 10^3/uL (1.2-3.4); Absolute Monocyte Count 0.65 10^3/uL (0.1-0.8); Absolute Neutrophil Count 6.54 10^3/uL (1.2-6.7); Atypical Lymphocytes % 6; Diff Comment Manual Differential; RBC Morphology Normal
[2023-07-17] MEDS: MORPHine 10 MG/ML VIAL 6 MG IVP (10:14)
[2023-07-17 10:18] LABS: ALT 73 U/L (16-63); AST 27 U/L (15-37); Albumin 3.9 g/dL (3.4-5.0); Alkaline Phosphatase 66 U/L (46-116); Anion Gap 10.7 mmol/L (3-11); BUN 16 mg/dL (7-18); Bilirubin, Total 0.6 mg/dL (0.2-1.0); C-Reactive Protein 2.86 mg/dL (<or=0.5); CO2 23.3 mmol/L (21.0-32.0); Calcium 8.7 mg/dL (8.5-10.1); Chloride 100 mmol/L (98-107); Estimated GFR 87.24 (mL/min/1.73m2); Glucose 145 mg/dL (74-106); Magnesium 2.1 mg/dL (1.8-2.4); Potassium 3.9 mmol/L (3.5-5.1); Sodium 134 mmol/L (136-145); Total Protein 7.8 g/dL (6.4-8.2)
[2023-07-17] MEDS: VANCOMYCIN/WATER (PEG) 2 GM/400 ML BAG IVPB (10:33)
[2023-07-17 10:39] LABS: Procalcitonin 0.2 ng/mL
--- NOTE | 2023-07-17 11:14 | ED.GENADUL_ITS ---
Discharge Plan Disposition Patient Disposition: Transfer-Acute Inpatient Care Specific Acute Inpt Facility: [facility] Condition: Fair Discharge Details Chief Complaint: RashLesion Clinical Impression: Cellulitis of face, Cellulitis of forehead, Periorbital swelling, Periorbital cellulitis, Vesicular skin lesions, Impetigo, Acute eye pain Primary Care Provider: Olga Jay ED Provider: Caty Aguilera Home Meds and New Rx's Prescriptions: No Action multivitamin [One-A-Day Essential] Tablet 1 tab PO DAILY Adult Probiotic 3 billion cell capsule 3,000 mmu cells PO DAILY potassium gluconate 595 mg (99 mg) tablet 595 mg PO DAILY amoxicillin-pot clavulanate 875-125 mg tablet 1 tab PO BID Qty: 14 0RF sulfamethoxazole-trimethoprim [Bactrim DS] 800-160 mg tablet 1 tab PO BID Qty: 14 0RF ascorbic acid (vitamin C) 500 mg capsule 500 mg PO DAILY levothyroxine 50 mcg tablet 50 mcg PO DAILY Qty: 90 4RF cholecalciferol (vitamin D3) [Vitamin D3] 25 mcg (1,000 unit) Tablet 1,000 unit PO DAILY HPI General Date/Time Provider Initiated Documentation: 07/17/23 09:18 . Limitations to Documentation: no limitations . Information obtained by: patient . HPI Narrative: 58-year-old gentleman with past medical history of hypertension, JENNIFFER presents for evaluation of left-sided facial redness. Patient reports that on Wednesday, he hit his head. He had a wound near his scalp. On , he was seen by the vehicle delivery worker and had his eye flushed and was treated for corneal abrasion. He was seen at [facility] in the emergency department on 425. He had been started on Bactrim and Augmentin. He reports that since leaving the emergency department 2 days ago, his symptoms have significantly worsened. He reports multiple episodes of vomiting and not tolerating the antibiotics. He reports the pain has increased significantly. The redness, blistering wounds and overall appearance has significantly worsened. He reports that last night his left eye got so swollen that he now can no longer open it. He reports severe headache. He denies any fever. Related Data Home Medications Medication Instructions Recorded Confirmed lactobacillus combination no.8 3 3,000 mmu cells PO DAILY 03/03/19 07/17/23 billion cell capsule (Adult Probiotic) multivitamin (One-A-Day Essential 1 tab PO DAILY 03/03/19 07/17/23 tablet) ascorbic acid (vitamin C) 500 mg 500 mg PO DAILY 10/03/20 07/17/23 capsule cholecalciferol (vitamin D3) 25 1,000 unit PO DAILY 10/10/20 07/17/23 mcg (1,000 unit) tablet (Vitamin D3) levothyroxine 50 mcg tablet 50 mcg PO DAILY #90 tabs 10/21/22 07/17/23 potassium gluconate 595 mg (99 mg) 595 mg PO DAILY 02/04/23 07/17/23 tablet amoxicillin 875 mg-potassium 1 tab PO BID #14 tabs 07/15/23 07/17/23 clavulanate 125 mg tablet sulfamethoxazole 800 1 tab PO BID #14 tabs 07/15/23 07/17/23 mg-trimethoprim 160 mg tablet (Bactrim DS) Previous Rx's Medication Instructions Recorded levothyroxine 50 mcg tablet 50 mcg PO DAILY #90 tabs 10/21/22 amoxicillin 875 mg-potassium 1 tab PO BID #14 tabs 07/15/23 clavulanate 125 mg tablet sulfamethoxazole 800 1 tab PO BID #14 tabs 07/15/23 mg-trimethoprim 160 mg tablet (Bactrim DS) Allergies Allergy/AdvReac Type Severity Reaction Status Date / Time cyclobenzaprine AdvReac Intermediate Nasty Verified 07/15/23 20:47 [From Flexeril] dispostion codeine AdvReac Nausea Verified 07/15/23 20:47 General Stated Complaint: RashLesion DICK: 3 Exam Narrative Exam Narrative: Review of Systems: All systems reviewed & are unremarkable except as noted in HPI and below Well-developed, ill-appearing Left face with extreme amount of redness. It is in the upper face, does not cross midline. There is a 2 x 2 wound area with central darkening and a surrounding white area at the hairline. There is erythema extending from the hairline to the tip of the nose and across the cheek there are vesicular lesions noted on the left side of the face some in the hair and some along the left neck, the left periorbital area is significantly swollen. There is some yellow crusting over some of the lesions The left eye is open and there is extensive conjunctival injection of the eye with tearing. Unable to assess full visual acuity, but the patient does report that he can see some things The left TM is clear, no lesions noted within the canal or on the TM There are no lesions within the nose are located at the tip of the nose Oropharynx with mild erythema, no lesions, no tonsillar enlargement RRR, no murmur Unlabored respiratory effort, clear bilaterally Nondistended abdomen Extremities w/o deformity, no cyanosis, no edema no focal neurologic deficits Appropriate mood and affect Course Vital Signs Vital signs: Vital Signs Temperature 36.2 C L 07/17/23 09:20 Pulse 65 07/17/23 09:20 Respiratory Rate 20 07/17/23 09:20 Blood Pressure 164/81 H 07/17/23 09:20 Pulse Oximetry 97 07/17/23 09:20 Temperature 36.2 C L 07/17/23 09:20 Temperature Source Tympanic 07/17/23 09:20 Pulse 65 07/17/23 09:20 Respiratory Rate 20 07/17/23 09:20 Respiratory Effort Normal 07/17/23 09:24 Blood Pressure 164/81 H 07/17/23 09:20 Blood Pressure Position Sitting 07/17/23 09:20 Pulse Oximetry 97 07/17/23 09:20 Oxygen Delivery Method Room Air 07/17/23 09:20 Oxygen Flow Rate 0 07/17/23 09:20 Pain Level 8 07/17/23 10:14 Lab/Test Results Lab/Test Results: 07/17/23 09:35 Blood Blood Culture - Pending 07/17/23 09:40 Blood Blood Culture - Pending Laboratory Tests Range/Units 07/17/23 09:40 WBC (4.4-10.8) 10^3/uL 8.18 RBC (4.36-5.78) 10^6/uL 5.43 Hgb (13.5-17.5) g/dL 17.4 Hct (40.0-50.0) % 48.3 MCV (80-95) fL 89 MCH (27.0-33.0) pg 32.0 MCHC (32.0-36.0) % 36.0 RDW (11.8-14.1) % 11.9 Plt Count (130-400) 10^3/uL 148 MPV (8.0-11.0) fL 9.0 Immature Gran % 0.0 Neutrophils % 80.0 Lymphocytes % 6.0 Atypical Lymphs % 6 Monocytes % 8.0 Eosinophils % 0.0 Basophils % 0.0 Nucleated RBC % (0.0-0.3) % 0.0 Absolute Neutrophils (1.2-6.7) 10^3/uL 6.54 Absolute Lymphocytes (1.2-3.4) 10^3/uL 0.98 L Absolute Monocytes (0.1-0.8) 10^3/uL 0.65 Absolute Eosinophils (0.0-0.7) 10^3/uL 0.00 Absolute Basophils (0.0-0.2) 10^3/uL 0.00 RBC Morphology Normal ESR (0-20) mm/hr 23 H VBG Lactate (0.6-1.4) mmol/L 1.3 Sodium (136-145) mmol/L 134 L Potassium (3.5-5.1) mmol/L 3.9 Chloride (98-107) mmol/L 100 Carbon Dioxide (21.0-32.0) mmol/L 23.3 Anion Gap (3-11) mmol/L 10.7 BUN (7-18) mg/dL 16 Creatinine (0.70-1.30) mg/dL 1.0 Est GFR (CKD-EPI 2020) (mL/min/1.73m2) 87.24 Glucose (74-106) mg/dL 145 H Calcium (8.5-10.1) mg/dL 8.7 Magnesium (1.8-2.4) mg/dL 2.1 Total Bilirubin (0.2-1.0) mg/dL 0.6 AST (15-37) U/L 27 ALT (16-63) U/L 73 H Alkaline Phosphatase (46-116) U/L 66 C-Reactive Protein (<or=0.5) mg/dL 2.86 H Total Protein (6.4-8.2) g/dL 7.8 Albumin (3.4-5.0) g/dL 3.9 Procalcitonin ng/mL 0.2 Medical Decision Making Emergent evaluation of left face infection. Patient reports that symptoms have significantly worsened over the last few days. Nursing staff here today also saw the patient 2 days ago and report that this is significantly worse. My initial suspicions include cellulitis, shingles, herpes ophthalmicus, orbital cellulitis. The patient does not have a history of diabetes, he has been on Bactrim and Augmentin but sounds like has not really been tolerating it. I will give broad-spectrum antibiotics and initiate acyclovir. The patient needs emergent ophthalmologic evaluation which is not available at this facility. I reviewed his prior emergency department visit including lab work and CT scan at that time. I will initiate transfer process. Lab work reviewed. No elevation in white blood cell count or anemia noted. ESR and CRP are significantly elevated. CMP without concerning abnormality. Procalcitonin not significantly elevated. I spoke with the emergency department physician at [facility] and the patient has been accepted for ED to ED transfer for emergent Opto evaluation. Optho has been in notified by transfer center. At this time there are no available transport services to allow the continuation of the medication during transport. Given the risk-benefit of this situation, I have decided to pause medication infusion during transport to allow for a more urgent transport as it is unknown when the patient will be able to be transported at the [employer] level. Medical Records Medical records reviewed: Yes I reviewed the patient's medical records. Lab Data Lab results reviewed: Yes I reviewed the patient's lab results. Quality:SDOH Health Related Social Needs: No Data to Display Critical Care Time Critical Care Time Critical Care Time: Yes Total Critical Care Time: 34 Attestation: CRITICAL CARE Upon my evaluation, this patient had a high probability of imminent or life- threatening deterioration due to soft tissue infection which required my direct attention, intervention, and personal management. I have personally provided 34 minutes of critical care time exclusive of time spent on separately billable procedures. Time includes review of laboratory data, radiology results, discussion with consultants, and monitoring for potential decompensation. Interventions were performed as documented above [facility] All Active Problems (Updated 07/17/23 @ 11:24 by Caty Aguilera MD) Acute eye pain (Acute) Impetigo (Acute) Vesicular skin lesions (Acute) Periorbital cellulitis (Acute) Periorbital swelling (Acute) Cellulitis of face (Acute) Cellulitis of forehead (Acute) Elevated blood pressure reading in office without diagnosis of hypertension (Acute) COVID-19 (Acute) Back injury (Acute) Obesity (Chronic) JENNIFFER (obstructive sleep apnea) (Chronic) CPAP Colon polyp, hyperplastic (Acute ~09/2020) Annual physical exam (Acute) Hypothyroid (Chronic) Surgical History History of colonoscopy (~09/2020) Family History Mother No problems noted. Father , age 74 No problems noted. Sister Heart disease Sister No problems noted. Brother No problems noted. Brother No problems noted. Brother No problems noted. Maternal Grandfather No problems noted. Paternal Grandfather No problems noted. Maternal Grandmother No problems noted. Paternal Grandmother No problems noted. Social History Smoking/Tobacco Use Status: Never Second Hand Exposure: Yes Smoking risk assessment performed?: Yes Alcohol Intake: current Alcohol Intake frequency: a few times a month Alcohol type: beer Drug use: Occasionally Substance use type: marijuana Counseling given: No Counseling provided: none Details: Marijuana use 3-4 days ago Adopted: No Caregiver/Support person: No Foster care: No Household members: spouse Housing: house Number of Children: 4 number of grandchildren: 12 Communication Needs: None Education Level: high school Do you need help understanding health information?: Rarely current occupation: structural iron erector Pets and animals: Yes Pets and animals: cat(s) and dog(s) Sexually active: Yes Do you think of yourself as: straight/heterosexual Current gender identity: male What is your relationship status?: How often do you talk on the phone with friends or family?: once per week How often do you get together with friends or relatives?: once per week How often do you attend worship or episcopal services?: decline to answer Do you belong to any clubs or organized social groups?: no Panel score (0-1 are the most socially isolated patients): 1 What type of physical activity do you participate in: none Duration: < 15 minutes/day Re/Rastafarian: Jainism Special re needs: No Agree to transfusion: Yes Seatbelt use: always Helmet use: Yes Drive intox or ride w/intox route sales driver: No Working smoke detector in home: Yes Carbon monox detector in home: Yes Firearms in home: Yes Do you feel safe at home: Yes Do you feel safe in your relationship?: Yes Victim of physical abuse: No Victim of emotional abuse: No Victim of sexual abuse: No Would you like helpful sources: No
== END 2023-07-17 11:32 | disposition short-term general hospital (02) ==
PROVIDERS: Emergency Provider Emergency Medicine; PCP Nurse Practitioner Family
DX: L03.213 Periorbital cellulitis (principal); L03.211 Cellulitis of face; L03.811 Cellulitis of head [any part, except face]; L01.00 Impetigo, unspecified; H57.12 Ocular pain, left eye; I10 Essential (primary) hypertension
CPT/HCPCS: 80053; 84145; 85652; 87040; 96365; 96367; 96368; 96375; 99285; 83605; 83735; 85025; 86140; J0133; J2270; J2405; J2543; J3372

== ENCOUNTER 2024-04-03 03:14 | Outpatient (CLI) | payer BC, SELFPAY ==
[2024-04-03 13:09] LABS: Anion Gap 8.5 mmol/L (3-11); BUN 8 mg/dL (7-18); CO2 26.5 mmol/L (21.0-32.0); CREATININE 0.9 mg/dL (0.70-1.30); Calcium 9.1 mg/dL (8.5-10.1); Calculated LDL 124 mg/dL (<100); Chloride 108 mmol/L (98-107); Cholesterol 190 mg/dL (<200); Estimated GFR 98.38 (mL/min/1.73m2); Glucose 123 mg/dL (74-106); HDL Cholesterol 40 mg/dL (40-60); Potassium 4.4 mmol/L (3.5-5.1); Sodium 143 mmol/L (136-145); TSH (W/Ref FT4) 3.89 uIU/mL (0.36-3.74); Triglyceride 131 mg/dL (<150)
[2024-04-03 13:12] LABS: Hemoglobin A1C 5.2 % (<5.7)
[2024-04-03 13:25] LABS: FREE T4 0.88 ng/dL (0.76-1.46)
== END 2024-04-03 03:15 | disposition home or self-care (01) ==
LOC: LOS 03:14
PROVIDERS: PCP Nurse Practitioner Family; Visit Provider Nurse Practitioner Family
DX: Z00.00 Encounter for general adult medical examination without abnormal findings (principal); R03.0 Elevated blood-pressure reading, without diagnosis of hypertension; E03.9 Hypothyroidism, unspecified; G47.33 Obstructive sleep apnea (adult) (pediatric)
CPT/HCPCS: 36415; 80048; 80061; 83036; 84439; 84443

== ENCOUNTER 2025-03-08 08:19 | Outpatient (CLI) | payer BC, SELFPAY | END 2025-03-08 08:20 | disposition home or self-care (01) | LOC: LOS 08:19 | PROVIDERS: PCP Nurse Practitioner Family; Visit Provider Nurse Practitioner Family | DX: Z00.00 Encounter for general adult medical examination without abnormal findings (principal); R03.0 Elevated blood-pressure reading, without diagnosis of hypertension; E03.9 Hypothyroidism, unspecified; G47.33 Obstructive sleep apnea (adult) (pediatric) | CPT/HCPCS: 36415; 80053; 80061; 84443 ==